=== PATIENT | male | born 1980 | race African-American/Black ===

== ENCOUNTER 2022-02-09 19:52 | Emergency (ER) | payer OTHER ==
[~2022-02-09] VITALS: Ht 172.7 cm; Wt 80.3 kg
[2022-02-09 20:38] VITALS: BP 160/90
== END 2022-02-10 04:15 | disposition left against medical advice (07) ==
LOC: ER 19:52
DX: Z53.21 Procedure and treatment not carried out due to patient leaving prior to being seen by health care provider (principal)
CPT/HCPCS: 93005